=== PATIENT | female | born 1960 | race Caucasian/White ===

== ENCOUNTER 2017-12-28 17:18 | Inpatient (IN) | payer SELFPAY ==
[~2017-12-28] VITALS: Ht 160 cm; Wt 79.8 kg
[2017-12-28 18:41] LABS: BASOPHILS % 0.1 % (0.0-2.0); EOSINOPHILS % 2.5 % (0.0-5.0); HEMATOCRIT. 40.5 % (36.0-48.0); HEMOGLOBIN. 13.9 g/dL (12.0-16.0); MEAN CORPUSCULAR HEMOGLOBIN 31.7 pg (28.0-32.0); MEAN CORPUSCULAR VOLUME 92.5 fL (81.0-99.0); MEAN PLATELET VOLUME 8.4 fl (7.4-10.4); MONOCYTES % 6.8 % (2.0-8.0); NEUTROPHILS % 67.6 % (40.0-76.0); PLATELET 265 x1000/uL (130-400); RED BLOOD CELL COUNT 4.38 mill/uL (4.2-5.4); RED CELL DISTRIBUTION WIDTH 13.5 % (11.6-14.6)
[2017-12-28 18:46] LABS: CHLORIDE 104 mEq/L (98-107)
[2017-12-28 18:47] LABS: INR 1.1; PROTHROMBIN TIME 11.6 sec (9.4-11.6)
[2017-12-28] MEDS ORDERED: ALBUTEROL (0.083%) 2.5MG/3ML NEB HHN STA (19:17)
[2017-12-28] MEDS ORDERED: IPRATROPIUM BROMIDE (0.02%) 0.5MG/2.5ML NEB HHN STA (19:17)
[2017-12-28] MEDS ORDERED: METHYLPREDNISOLONE SOD SUCC 125 MG/2 ML VIAL IV STA (19:17)
[2017-12-28] MEDS ORDERED: MAGNESIUM 2 G PREMIX 50 ML IV ONE (19:30)
[2017-12-28] MEDS ORDERED: ASPIRIN 81MG TABLET PO ONE (19:30)
[2017-12-28] MEDS ORDERED: NITROGLYCERIN 0.4MG TABLET SL SL PRN (19:45)
[2017-12-28 23:52] VITALS: BP 103/52
[2017-12-29 00:32] VITALS: BP 103/52
[2017-12-29] MEDS ORDERED: IPRATROPIUM/ALBUTEROL 0.5-3(2.5)MG/3ML NEB HHN PRN (01:15)
[2017-12-29] MEDS ORDERED: ONDANSETRON HCL 4MG/2ML VIAL IV PRN (01:15)
[2017-12-29] MEDS ORDERED: HYDROCODONE/ACETAMINOPHEN 5/325MG TABLET PO PRN (01:15)
[2017-12-29 04:00] VITALS: BP 106/56
[2017-12-29] MEDS ORDERED: METHYLPREDNISOLONE SOD SUCC 40 MG/ML VIAL IV SCH (06:00)
[2017-12-29] MEDS: OMEPRAZOLE 20MG CAPSULE EXTENDED RELEASE PO SCH (06:19)
[2017-12-29 07:25] LABS: BASOPHILS % 0.1 % (0.0-2.0); CHLORIDE 102 mEq/L (98-107); HEMOGLOBIN. 13.5 g/dL (12.0-16.0); LYMPHOCYTES % 16.3 % (20.0-50.0); MEAN CORPUSCULAR HEMOGLOBIN 32.7 pg (28.0-32.0); MEAN CORPUSCULAR VOLUME 94.6 fL (81.0-99.0); MEAN PLATELET VOLUME 8.8 fl (7.4-10.4); MONOCYTES % 1.1 % (2.0-8.0); NEUTROPHILS % 82.5 % (40.0-76.0); PLATELET 263 x1000/uL (130-400); RED BLOOD CELL COUNT 4.13 mill/uL (4.2-5.4); RED CELL DISTRIBUTION WIDTH 13.6 % (11.6-14.6)
[2017-12-29 07:33] LABS: HDL CHOLESTEROL 50 mg/dL (40-59); LDL CHOLESTEROL 144 mg/dL (5-100)
[2017-12-29 07:41] VITALS: BP 106/60
[2017-12-29] MEDS: ASPIRIN 81MG TABLET PO SCH (08:37)
[2017-12-29] MEDS: IPRATROPIUM/ALBUTEROL 0.5-3(2.5)MG/3ML NEB HHN SCH ×3 (08:47→21:55)
[2017-12-29 12:00] VITALS: BP 102/48
[2017-12-29] MEDS: BUDESONIDE 0.5MG/2ML NEB HHN SCH ×2 (13:43→21:54)
[2017-12-29] MEDS: LORATADINE 10MG TABLET PO SCH (13:43)
[2017-12-29 16:00] VITALS: BP 97/50
[2017-12-29] MEDS ORDERED: MONTELUKAST SODIUM 10MG TABLET PO SCH (17:00)
[2017-12-29 20:37] VITALS: BP 103/58
[2017-12-30] VITALS: BP 103/57
[2017-12-30] MEDS: IPRATROPIUM/ALBUTEROL 0.5-3(2.5)MG/3ML NEB HHN SCH ×3 (02:48→13:46)
[2017-12-30 04:00] VITALS: BP 98/63
[2017-12-30] MEDS: OMEPRAZOLE 20MG CAPSULE EXTENDED RELEASE PO SCH (06:11)
[2017-12-30 06:54] LABS: BASOPHILS % 0.2 % (0.0-2.0); HEMATOCRIT. 37.7 % (36.0-48.0); HEMOGLOBIN. 12.8 g/dL (12.0-16.0); LYMPHOCYTES % 19.7 % (20.0-50.0); MEAN CORPUSCULAR HEMOGLOBIN 32.2 pg (28.0-32.0); MEAN CORPUSCULAR VOLUME 94.7 fL (81.0-99.0); MEAN PLATELET VOLUME 8.5 fl (7.4-10.4); MONOCYTES % 8.1 % (2.0-8.0); PLATELET 249 x1000/uL (130-400); RED BLOOD CELL COUNT 3.98 mill/uL (4.2-5.4); RED CELL DISTRIBUTION WIDTH 13.6 % (11.6-14.6)
[2017-12-30 06:58] LABS: CHLORIDE 105 mEq/L (98-107)
[2017-12-30 08:00] VITALS: BP 88/47
[2017-12-30] MEDS: ASPIRIN 81MG TABLET PO SCH (08:31)
[2017-12-30] MEDS: LORATADINE 10MG TABLET PO SCH (08:31)
[2017-12-30] MEDS: BUDESONIDE 0.5MG/2ML NEB HHN SCH (08:32)
[2017-12-30 13:02] VITALS: BP 120/65
== END 2017-12-30 15:00 | disposition home or self-care (01) | DRG 133 ==
LOC: ER 17:43 → 8WST 21:29 → ENRESERV 21:50
PROVIDERS: ADMIT Family Medicine Adult Medicine; ATTEND Family Medicine Adult Medicine
DX: J96.00 Acute respiratory failure, unspecified whether with hypoxia or hypercapnia (principal); J45.901 Unspecified asthma with (acute) exacerbation; E78.5 Hyperlipidemia, unspecified; E66.9 Obesity, unspecified; K21.9 Gastro-esophageal reflux disease without esophagitis; R73.9 Hyperglycemia, unspecified; T38.0X5A Adverse effect of glucocorticoids and synthetic analogues, initial encounter; Z88.8 Allergy status to other drugs, medicaments and biological substances; Z87.81 Personal history of (healed) traumatic fracture; Z79.899 Other long term (current) drug therapy; Z68.31 Body mass index [BMI] 31.0-31.9, adult
CPT/HCPCS: 36415; 71045; 80048; 80053; 80061; 81025; 83036; 83735; 83880; 84484; 85025; 85610; 93005; 94640; 96365; 96375; 99285; J2920; J2930; J3475; J7611; J7620; J7626

== ENCOUNTER 2018-08-24 21:44 | Emergency (ER) | payer MEDICAID | END 2018-08-24 22:27 | disposition left against medical advice (07) | LOC: ER 21:44 | DX: Z53.21 Procedure and treatment not carried out due to patient leaving prior to being seen by health care provider (principal) ==